=== PATIENT | male | born 1955 | race Caucasian/White ===

== ENCOUNTER 2023-09-08 06:01 | Day surgery (SDC) | payer MEDICARE, OTHER ==
[~2023-09-08] VITALS: Ht 170.2 cm; Wt 85.3 kg
[2023-09-08] VITALS (8 sets, daily range): BP systolic 124–147; BP diastolic 66–85
[~2023-09-08 06:01] MED LIST: ATOR40TA PO; Aspir 8181 MG PO; METO25ER PO; NITR.4SL SL; OMEGA-3 + VITA200 ML PO; THERA-D2000 UNIT PO
--- NOTE | 2023-09-08 09:01 | NUR ---
pt back from lab in recliner, tr band remains in place with 18cc of air in band. no hematoma no bruising or bleeding at this time. pt. denies any chest pain/pressure. pt. vss.
[2023-09-08] MEDS ORDERED: CLOP75 PO (10:34)
--- NOTE | 2023-09-08 11:16 | NUR ---
TR BAND DEFLATED PER PROTOCOL. PT. BEGAN TO OOZE SLIGHTLY UNDER TR BAND WITH INITIAL AIR REMOVAL HOWEVER REMAINS STABLE AT THIS TIME. NO OOZING, NO HEMATOMA AT THIS TIME.
--- NOTE | 2023-09-08 11:58 | NUR ---
PT TR BAND DEFLATED AND PT WAS ABLE TO GET SELF DRESSED. IV REMOVED, CATHETER INTACT. SITE WNL, PT. VSS. NO HEMATOMA, NO BLEEDING. DISCHARGE INSTRUCTIONS REVIEWED IN DETAIL WITH PT AND , NO FURTHER QUESTIONS. PLAVIX CALLED INTO [facility] ON [address] PER PT REQUEST. PT. ARM BOARD AND SLING IN PLACE FOR DEPARTURE. TAKEN TO EXIT VIA WHEEL CHAIR.
== END 2023-09-08 12:00 | disposition home or self-care (01) ==
LOC: MHTC 06:01
DX: I25.118 Atherosclerotic heart disease of native coronary artery with other forms of angina pectoris (principal); I25.82 Chronic total occlusion of coronary artery; I71.40 Abdominal aortic aneurysm, without rupture, unspecified; E78.2 Mixed hyperlipidemia; I10 Essential (primary) hypertension; Z79.82 Long term (current) use of aspirin; Z79.899 Other long term (current) drug therapy; E78.5 Hyperlipidemia, unspecified
CPT/HCPCS: 76937; 85347; 93454; 93458; 99152; 99153; A9270; C1725; C1769; C1874; C1887; C1894; C9600; J1644; J2250; J3010; J3246; J7030; J7050; Q9967